=== PATIENT | female | born 1945 | race African-American/Black ===

== ENCOUNTER 2017-10-09 06:00 | Day surgery (SDC) | payer MEDICARE ==
[~2017-10-09] VITALS: Ht 154.9 cm; Wt 76.0 kg
[2017-10-09 06:54] VITALS: BP 152/103; PULSE 99; RESP 18; TEMP 97.9; O2SAT 92
[2017-10-09 07:12] LABS: AUTOMATED NEUTROPHIL # 4.7 TH/MM3 (1.8-7.7); BASOPHIL # 0.1 TH/MM3 (0-0.2); BASOPHIL % 0.7 % (0.0-2.0); EOSINOPHIL # 0.1 TH/MM3 (0-0.4); EOSINOPHIL % 1.5 % (0.0-4.0); HEMATOCRIT 43.1 % (35.0-46.0); HEMOGLOBIN 14.1 GM/DL (11.6-15.3); LYMPH % 28.2 % (9.0-44.0); LYMPHOCYTE # 2.1 TH/MM3 (1.0-4.8); MEAN CELL VOLUME 85.3 FL (80.0-100.0); MEAN CORPUSCULAR HEMOGLOBIN 27.9 PG (27.0-34.0); MEAN CORPUSCULAR HGB CONC 32.8 % (32.0-36.0); MEAN PLATELET VOLUME 9.5 FL (7.0-11.0); MONO % 7.5 % (0.0-8.0); MONOCYTE # 0.6 TH/MM3 (0-0.9); NEUT % 62.1 % (16.0-70.0); PLATELET COUNT 181 TH/MM3 (150-450); RED BLOOD COUNT 5.06 MIL/MM3 (4.00-5.30); RED CELL DISTRIBUTION WIDTH 13.5 % (11.6-17.2); WHITE BLOOD COUNT 7.5 TH/MM3 (4.0-11.0)
[2017-10-09] MEDS ORDERED: SODIUM CHLOR 0.9% 1000 ML IV SCH (07:15)
[2017-10-09 07:19] LABS: PROTHROMBIN TIME - PATIENT 10.5 SEC (9.8-11.6)
[2017-10-09] MEDS ORDERED: PANT40TA3 PO (07:29)
[2017-10-09] MEDS ORDERED: AMLO5TAB2 PO (07:29)
[2017-10-09] MEDS ORDERED: FURO40TA PO (07:29)
[2017-10-09] MEDS ORDERED: LORA-650 PO (07:29)
[2017-10-09] MEDS ORDERED: KLOR10TA PO (07:29)
[2017-10-09] MEDS ORDERED: ATOR20TA15 PO (07:29)
[2017-10-09] MEDS ORDERED: ASPI81CH6 CHEW (07:29)
[2017-10-09] MEDS ORDERED: LEVO25TA4 PO (07:29)
[2017-10-09] MEDS ORDERED: VITA2000 PO (07:29)
[2017-10-09] MEDS ORDERED: LOSA50TA PO (07:29)
[2017-10-09] MEDS ORDERED: MIDAZOLAM HCL 5 MG/5 ML VIAL ONE (08:23)
[2017-10-09] MEDS ORDERED: fentaNYL CITRATE 250 MCG/5 ML AMP ONE (08:23)
[2017-10-09 09:05] VITALS: BP 136/81; PULSE 73; RESP 16; RESP 18; TEMP 98; O2SAT 95
[2017-10-09 09:20] VITALS: BP 127/79; PULSE 64; RESP 17; O2SAT 94
--- NOTE | 2017-10-09 09:31 | RADRPT ---
EXAM DATE: 10/09/2017 9:09 AM EDT AGE/SEX: 72 years / Female INDICATIONS: Right renal mass. COMPARISON: No prior exams available for comparison. CONSULTATION: 72-year-old mentally handicapped Jehovah witness who presents for biopsy of a 1.8 cm mass in the mid anterior right kidney. Review of the [facility] CT examination demonstrates a 1.8 cm mass in th e anterior mid right kidney that is only visible during the cortical and delayed renal phase imaging on CT exam. Patient also reportedly has an MRI examination in May of this year demonstrating thi s lesion although this is not available for review. Per report, the lesion is stable between the 2 ex ams. Patient was placed prone with intent for potential biopsy of this lesion. Noncontrast CT examination through the kidneys does not demonstrate this lesion. Therefore, IV contrast was administered and aga in CT examination through this kidneys in the early cortical phase does not demonstrate this lesion. The lesion is apparent on delayed cortical phase imaging and measures approximately 1.8 cm in the ant erior mid right kidney. Patient again has a prominent air-filled transposed colon with mass effect on the right kidney and liver. There is not an adequate window for percutaneous biopsy of this difficul t to visualized anterior mid right renal lesion. A potential biopsy path would require traversing gilbert e portion of the renal pelvis. Additionally, the ureter is in very close proximity to this lesion wit h patient in prone position. Therefore, biopsy is deferred at this time. Electronically signed by: León Roy MD 10/09/2017 9:29 AM EDT
[2017-10-09 09:50] VITALS: BP 120/75; PULSE 66; RESP 18; O2SAT 95
[2017-10-09 10:20] VITALS: BP 125/77; PULSE 64; RESP 17; O2SAT 96
== END 2017-10-09 11:12 | disposition home or self-care (01) ==
LOC: HRAD 06:00 → HRIP 06:03 → HRAD 11:12
PROVIDERS: ATTEND Urology
DX: N28.89 Other specified disorders of kidney and ureter (principal); I50.9 Heart failure, unspecified; Z79.82 Long term (current) use of aspirin
CPT/HCPCS: 85025; 85610; 85730; J2250; J3010